=== PATIENT | female | born 1965 | race Caucasian/White ===

== ENCOUNTER 2016-10-10 12:13 | Emergency (ER) | payer OTHER, MEDICAID ==
[~2016-10-10] VITALS: Ht 175.3 cm; Wt 68.0 kg
[2016-10-10 12:29] VITALS: BP 134/87
== END 2016-10-10 14:22 | disposition home or self-care (01) ==
LOC: ER 12:14
DX: J20.9 Acute bronchitis, unspecified (principal); F90.9 Attention-deficit hyperactivity disorder, unspecified type; F17.200 Nicotine dependence, unspecified, uncomplicated
CPT/HCPCS: 71010-TC; A4606; Z7610

== ENCOUNTER 2018-10-07 13:06 | Emergency (ER) | payer MEDICAID, OTHER ==
[~2018-10-07] VITALS: Ht 165.1 cm; Wt 55.8 kg
--- NOTE | 2018-10-07 13:45 | NUR ---
PT BIB SELF, C/O DIZZINESS AND HEADACHE x 3 DAYS, -N/V, -SOB. ALERT AND ORIENTED X 4, VERBALLY RESPONSIVE AND ABLE TO MAKE NEEDS KNOWN. ON ROOM AIR, BREATHING EVENLY AND UNLABORED. KEPT COMFORTABLE. WILL COTNINUE TO MONITOR ACCORDINGLY.
[2018-10-07 14:19] LABS: ABG BASE EXCESS -3.1 mmol/L; ABG OXYGEN SATURATION 97.1 % (92.0-98.5); ABG PCO2 30.9 mmHg (35.0-45.0); ABG PH 7.429 (7.350-7.450); ABG PO2 100.7 mmHg (75.0-100.0); COHb 1.6 % (0.5-1.5); MetHb 0.3 % (0.0-1.5); O2Hb 95.3 % (94.0-97.0); SITE, ABG Left Radial; VENT MODE, BG ROOM AIR
[2018-10-07 14:32] VITALS: BP 122/81
--- NOTE | 2018-10-07 14:34 | NUR ---
Patient discharged to home in stable condition. Written and verbal after care instructions given. Patient verbalizes understanding of instruction.
== END 2018-10-07 14:33 | disposition home or self-care (01) ==
LOC: ER 13:15
DX: G44.209 Tension-type headache, unspecified, not intractable (principal); F90.9 Attention-deficit hyperactivity disorder, unspecified type; F17.200 Nicotine dependence, unspecified, uncomplicated; Z98.890 Other specified postprocedural states
CPT/HCPCS: 36600

== ENCOUNTER 2021-03-01 09:02 | Emergency (ER) | payer OTHER ==
[~2021-03-01] VITALS: Ht 165.1 cm; Wt 57.6 kg
[2021-03-01 09:09] VITALS: BP 119/76
--- NOTE | 2021-03-01 09:12 | NUR ---
BIBS FROM HOME FOR COMPLAINTS OF RIGHT THUMB PAIN FOR 2 MONTHS. A/O X4. STABLE ON ROOM AIR. MD AT BEDSIDE FOR EVAL.
[2021-03-01] MEDS ORDERED: IBUP-1957 PO (10:32)
--- NOTE | 2021-03-01 10:45 | NUR ---
DISCHARGED PT TO HOME IN STABLE CONDITON. A/O X4. STABLE ON ROOM AIR, NO SOB. PRESCRIPTION AND DISCHARGE INSTRUCTIONS GIVEN TO PT, VERBALIZED UNDERSTANDING.
== END 2021-03-01 10:48 | disposition home or self-care (01) ==
LOC: ER 09:10
DX: M79.644 Pain in right finger(s) (principal); I10 Essential (primary) hypertension; F10.10 Alcohol abuse, uncomplicated; F17.200 Nicotine dependence, unspecified, uncomplicated; Y90.9 Presence of alcohol in blood, level not specified; Z98.890 Other specified postprocedural states; Z79.899 Other long term (current) drug therapy
CPT/HCPCS: 73130-TC

== ENCOUNTER 2022-03-20 11:58 | Emergency (ER) | payer OTHER ==
[~2022-03-20] VITALS: Ht 165.1 cm; Wt 56.7 kg
[~2022-03-20 11:58] MED LIST: IBUP-1957 PO
--- NOTE | 2022-03-20 14:00 | NUR ---
BIBS C/O "been Feeling weak/dizzy- room spin x5days- Hx of vertigo". AMBULATORY, PLACED ON BED, AAOX4.
[2022-03-20] MEDS ORDERED: MECLIZINE HCL 25 MG TABLET ONE (14:19)
[2022-03-20] MEDS ORDERED: MECLIZINE HCL 12.5 MG TABLET PO ONE (14:30)
[2022-03-20] MEDS ORDERED: IV NS 0.9% 1,000 ML BAG IV ONE (14:30)
--- NOTE | 2022-03-20 14:40 | NUR ---
AT BED SIDE
--- NOTE | 2022-03-20 14:45 | NUR ---
X-RAY TECH AT BED SIDE
--- NOTE | 2022-03-20 14:55 | NUR ---
PATIENT TAKEN TO CT VIA [facility]
[2022-03-20] MEDS ORDERED: IV NS 0.9% 250 ML IV ONE (14:57)
[2022-03-20] MEDS ORDERED: IOHEXOL-350 100 ML VIAL IV ONE (14:57)
[2022-03-20 15:00] LABS: BASOPHILS % (AUTO) 0.7 % (0.0-2.0); EOSINOPHILS % (AUTO) 1.8 % (0.0-6.0); HEMATOCRIT 46 % (33-45); LYMPHOCYTES % (AUTO) 26.7 % (20.0-44.0); MEAN CORPUSCULAR HGB CONC 35 g/dl (31.0-36.0); MEAN CORPUSCULAR VOLUME 89 fL (82-100); MONOCYTES # (AUTO) 0.6 K/uL (0.1-1.30); MONOCYTES % (AUTO) 15.7 % (2.0-12.0); NEUTROPHILS % (AUTO) 55.1 % (43.0-81.0); PLATELET COUNT (AUTO) 217 K/uL (150-450); RED BLOOD CELL COUNT(AUTO) 5.19 MIL/uL (4.0-5.2); WHITE BLOOD COUNT (AUTO) 3.6 K/uL (4.3-11.0)
[2022-03-20 15:02] LABS: CALCIUM, SERUM 9.1 mg/dL (8.5-10.1); CREATININE 0.9 mg/dL (0.6-1.3); POTASSIUM 3.3 mmol/L (3.5-5.1)
--- NOTE | 2022-03-20 15:14 | NUR ---
COVID ANTIGEN SWAB DONE AND SENT TO THE LAB
[2022-03-20] MEDS ORDERED: MECL-159 PO (16:13)
--- NOTE | 2022-03-20 16:44 | NUR ---
IV removed. Catheter intact and site benign. Pressure and 4x4 applied to site. No bleeding noted.Patient discharged to home in stable condition. Written and verbal after care instructions given. Patient verbalizes understanding of instruction.
[2022-03-20 16:45] VITALS: BP 141/87
[2022-03-20 16:59] LABS: BAND % (MANUAL) 3 % (0.0-5.0); LYMPHOCYTES % (MANUAL) 39 % (16-48); MONOCYTES % (MANUAL) 8 % (0-11.0); NEUTROPHILS % (MANUAL) 50 (42-76)
== END 2022-03-20 15:45 | disposition home or self-care (01) ==
LOC: ER 12:20
DX: U07.1 COVID-19 (principal); R42 Dizziness and giddiness; M50.30 Other cervical disc degeneration, unspecified cervical region; E87.6 Hypokalemia; F90.9 Attention-deficit hyperactivity disorder, unspecified type; I10 Essential (primary) hypertension; Z79.899 Other long term (current) drug therapy; I44.4 Left anterior fascicular block
CPT/HCPCS: 36415; 70496; 70498; 71045; 80048; 82962; 85007; 85025; 87426; 93005; 96360; 99285; C9803; J7030; J7050; J8597; Q9967

== ENCOUNTER 2025-08-21 08:31 | Emergency (ER) | payer OTHER ==
[~2025-08-21] VITALS: Ht 162.6 cm; Wt 70.3 kg
[~2025-08-21 08:31] MED LIST changes: +MECL-159 PO
[2025-08-21] MEDS ORDERED: AMOX500T2 PO (09:05)
[2025-08-21] MEDS ORDERED: PRED20TA PO (09:05)
[2025-08-21] MEDS ORDERED: AZIT250T13 PO (09:05)
[2025-08-21] MEDS ORDERED: ALBU18HF2 INH (09:05)
[2025-08-21 09:21] VITALS: BP 134/90; TEMP 98; O2SAT 98
== END 2025-08-21 09:21 | disposition home or self-care (01) ==
LOC: ER 08:44
DX: J22 Unspecified acute lower respiratory infection (principal); I10 Essential (primary) hypertension; F17.210 Nicotine dependence, cigarettes, uncomplicated; F41.9 Anxiety disorder, unspecified; F90.9 Attention-deficit hyperactivity disorder, unspecified type; Z79.52 Long term (current) use of systemic steroids; Z79.1 Long term (current) use of non-steroidal anti-inflammatories (NSAID); X58.XXXA Exposure to other specified factors, initial encounter; Y93.89 Activity, other specified; Y92.89 Other specified places as the place of occurrence of the external cause; Y99.8 Other external cause status